=== PATIENT | male | born 1970 | race Caucasian/White ===

== ENCOUNTER 2019-07-07 01:01 | Inpatient (IN) | payer MEDICARE ==
--- NOTE | 2019-07-07 02:01 | PDOC ---
*Physical Exam - Vital Signs Last Vital Signs Temp Pulse Resp BP Pulse Ox 98.4 F 73 18 129/81 98 07/07/19 01:24 07/07/19 01:24 07/07/19 01:24 07/07/19 01:24 07/07/19 01:24 ED Treatment Course - LABORATORY CBC & Chemistry Diagram: 07/07/19 02:50 07/07/19 02:50 Medical Decision Making - Medical Decision Making 07/07/19 02:01 Patient seen by the advanced practice provider under my direct supervision. Ancillary testing reviewed as necessary. I agree with plan as outlined by the advanced practice provider. *DC/Admit/Observation/Transfer Diagnosis at time of Disposition: Right flank pain - Referrals Referrals: Otis Hanna [Primary Care Provider] - - Patient Instructions - Post Discharge Activity
--- NOTE | 2019-07-07 02:11 | PDOC ---
History of Present Illness - General Chief Complaint: Pain Stated Complaint: KIDNEY STONE Time Seen by Provider: 07/07/19 01:58 History Source: Patient - History of Present Illness Initial Comments: 07/07/19 03:21 48 year old male c/o right flank pain radiating to right groin. patient reports pain 8/10 with no relief with pain medication at home. patient was seen by urology 1 week ago reports that he has b/l kidney stones with large stone on the right. denies dysuria, oliguria, hematuria. patient reports that he was instructed by urology to return to the ER for evaluation. 07/07/19 05:01 urology: Dr. Rowland Past History - Past Medical History Allergies/Adverse Reactions: Allergies Allergy/AdvReac Type Severity Reaction Status Date / Time No Known Allergies Allergy Verified 07/07/19 01:24 Home Medications: Ambulatory Orders Diphenoxylate HCl/Atropine [Lomotil 2.5-0.025 mg Tablet] 1 each PO BID #20 tablet 05/19/14 Tamsulosin HCl [Flomax -] 0.4 mg PO DAILY@0830 #60 cap.er.24h 07/07/19 COPD: No Other medical history: Pt denies - Surgical History Appendectomy: Yes - Suicide/Smoking/Psychosocial Hx Smoking History: Never smoked Have you smoked in the past 12 months: No Information on smoking cessation initiated: No Hx Alcohol Use: No Drug/Substance Use Hx: No Review of Systems - Review of Systems Able to Perform ROS?: Yes Is the patient limited Nepalese proficient: No Constitutional: No: Symptoms Reported, See HPI, Chills, Diaphoresis, Fever, Loss of Appetite, Malaise, Night Sweats, Weakness, Weight Stable, Unintentional Wgt. Loss, Unexplained wgt Loss, Other ABD/GI: No: Symptoms Reported, See HPI, Abdominal Distended, Abd. Pain w/ defecation, Blood Streaked Bowels, Constipated, Diarrhea, Difficulty Swallowing , Nausea, Poor Appetite, Poor Fluid Intake, Rectal Bleeding, Vomiting, Indigestion, Abdominal cramping, Tarry Stools, Other : Yes: Flank Pain Integumentary: No: Symptoms Reported, See HPI, Bruising, Change in Color, Change in Hair/Nails, Dryness, Erythema, Flushing, Lesions, Lumps, Pallor, Pruritus, Rash, Sweating, Other *Physical Exam - Vital Signs Last Vital Signs Temp Pulse Resp BP Pulse Ox 98.4 F 73 18 129/81 98 07/07/19 01:24 07/07/19 01:24 07/07/19 01:24 07/07/19 01:24 07/07/19 01:24 - Physical Exam General Appearance: Yes: Appropriately Dressed Respiratory/Chest: positive: Lungs Clear, Normal Breath Sounds Gastrointestinal/Abdominal: positive: Normal Bowel Sounds, Tender (R CVAT and right lower quadrant) Musculoskeletal: positive: CVA Tenderness (R) Extremity: positive: Normal Capillary Refill, Normal Inspection, Normal Range of Motion Integumentary: positive: Normal Color, Dry, Warm Neurologic: positive: Fully Oriented, Alert, Normal Mood/Affect ED Treatment Course - LABORATORY CBC & Chemistry Diagram: 07/07/19 07:57 07/07/19 07:57 Progress Note - Progress Note Progress Note: A: right flank pain r/o obstructed stone P: Spiral CT IVF pain control spiral ct: Mild basilar atelectasis. Lack of oral contrast limits this exam. Lack of intravenous contrast limits this exam. Moderate right hydronephrosis with a proximal right ureteral 9 x 7 x 5 mm stone located approximately 16 cm upstream from the right ureterovesicular junction on coronal image 28 and axial image 69 and sagittal image 29. Noncontrast evaluation liver gallbladder pancreas spleen adrenal glands and left kidney appear unremarkable. Noncontrast evaluation stomach small bowel appear unremarkable. Appendix is surgically absent. Constipation. Diverticulosis without diverticulitis. Bladder appears unremarkable. Calcified granulomas in the prostate. Small umbilical hernia omental fat without incarceration. Moderate degenerative disc disease in the lower lumbar spine. Moderate degenerative joint disease of lower lumbar facets. Bone bridging across the sacroiliac joints. Mild degenerative joint disease of the hips with subchondral cystic degenerative change Medical Decision Making - Medical Decision Making 07/07/19 05:56 patient admitted to the hospital. signed out to the hospitalist team *DC/Admit/Observation/Transfer Diagnosis at time of Disposition: Right flank pain, Hydronephrosis, right, Renal colic on right side, Kidney stone on right side - Discharge Dispostion Decision to Admit order: Yes - Referrals - Patient Instructions - Post Discharge Activity
[2019-07-07] MEDS ORDERED: SODIUM CHLORIDE 1,000 ML IV STA (02:42)
[2019-07-07] MEDS ORDERED: KETOROLAC TROMETHAMINE 30 MG/1 ML VIAL IVPUSH ONE (02:42)
[2019-07-07] MEDS ORDERED: KETOROLAC TROMETHAMINE 30 MG/1 ML VIAL ONE (02:47)
[2019-07-07 03:09] LABS: BASO % 0.6 % (0-2.0); EOS % 2.9 % (0-4.5); HEMATOCRIT 43.9 % (35.4-49); HEMOGLOBIN 14.5 GM/dL (11.7-16.9); LYMPH % 46.2 % (8-40); MCH 30.3 pg (25.7-33.7); MCHC 33.2 g/dl (32.0-35.9); MEAN CELL VOLUME 91.3 fl (80-96); MEAN PLT VOLUME 8.1 fl (7.5-11.1); MONO % 7.3 % (3.8-10.2); PLATELET COUNT 329 K/MM3 (134-434); RBC 4.81 M/mm3 (4.00-5.60); RDW 14.6 % (11.9-15.9); WHITE BLOOD COUNT 5.7 K/mm3 (4.0-10.0)
[2019-07-07 03:14] LABS: PH,URINE 5.5 (5.0-8.0); URINE APPEARANCE CLEAR; URINE BILIRUBIN NEGATIVE (NEGATIVE); URINE COLOR YELLOW; URINE GLUCOSE (UA) NEGATIVE (NEGATIVE); URINE KETONE NEGATIVE (NEGATIVE); URINE LEUK ESTERASE NEGATIVE (NEGATIVE); URINE NITRITE NEGATIVE (NEGATIVE); URINE PROTEIN NEGATIVE (NEGATIVE); URINE UROBILINOGEN 0.2 mg/dL (0.2-1.0)
[2019-07-07 03:33] LABS: ALBUMIN 4.1 g/dl (3.4-5.0); BILIRUBIN,TOTAL 0.3 mg/dL (0.2-1); BLOOD UREA NITROGEN 18.7 mg/dL (7-18); CALCIUM 9.6 mg/dL (8.5-10.1); CREATININE 0.9 mg/dL (0.55-1.3); POTASSIUM 4.7 mmol/L (3.5-5.1); TOT PROT 7.6 g/dl (6.4-8.2)
[2019-07-07] MEDS: SODIUM CHLORIDE 1,000 ML IV SCH ×2 (05:32→13:11)
--- NOTE | 2019-07-07 05:48 | PN ---
Teaching Attending Note Name of Resident: Irma Malave ATTENDING PHYSICIAN STATEMENT I saw and evaluated the patient. I reviewed the resident's note and discussed the case with the resident. I agree with the resident's findings and plan as documented. SUBJECTIVE: Patient is a 48 year old man with PMH of appendectomy who presents with right flank pain radiating to right groin. Patient reports pain 8/10 in severity with no relief with pain medication at home. Patient was seen by urology 1 week ago reports that he has bilateral kidney stones with large stone on the right. Denies dysuria, oliguria, hematuria, nausea, vomiting, diarrhea, SOB, headache or chest pain. Denies alcohol abuse or use of illicit drugs. Patient reports that he was instructed by urology to return to the ER for evaluation. OBJECTIVE: Alert Vital Signs Period Temp Pulse Resp BP Sys/Esquivel Pulse Ox Last 24 Hr 97.7 F-98.4 F 56-73 18-20 114-129/74-81 98-98 HEENT: No Jaundice, eye redness or discharge, PERRLA, EOMI. Normocephalic, atraumatic. External ears are normal and hearing is grossly intact. No nasal discharge. Neck: Supple, nontender. No palpable adenopathy or thyromegaly. No JVD Chest: Good effort. Clear to auscultation and percussion. Heart: Regular. No S3, rub or murmur Abdomen: Not distended, soft, right CVA tenderness and no HSM. No rebound or guarding. Normal bowel sounds. Ext: Peripheral pulses intact. No leg edema. Skin: Warm and dry. No petechiae, rash or ecchymosis. Neuro: Alert. Oriented x3. CN 2-12 grossly intact. Sensation grossly intact in all four extremities and DTR are symmetric. Psych: Appropriate mood and affect. Good insight. Current Medications Generic Name Dose Route Start Last Admin Trade Name Freq PRN Reason Stop Dose Admin Sodium Chloride 1,000 mls @ 150 mls/hr 07/07/19 05:15 07/07/19 05:32 Normal Saline - IV 150 mls/hr ASDIR JORGE Administration Home Medications Medication Instructions Recorded Diphenoxylate HCl/Atropine 1 each PO BID #20 tablet 05/19/14 [Lomotil 2.5-0.025 Mg Tablet] Abnormal Lab Results 07/07/19 07/07/19 02:50 02:50 Lymphocytes % 46.2 H Anion Gap 7 L BUN 18.7 H AST 82 H ALT 83 H ASSESSMENT AND PLAN: 1. Renal colic/Right kidney stone - Spiral CT scan showed "moderate right hydronephrosis with a proximal right ureteral 9 x 7 x 5 mm stone located approximately 16 cm upstream from the right ureterovesicular junction. Moderate degenerative disc disease in the lower lumbar spine. Moderate degenerative joint disease of lower lumbar facets. Bone bridging across the sacroiliac joints. Mild degenerative joint disease of the hips with subchondral cystic degenerative change" Got toradol and IV NS in the ER. Will keep him NPO, continue IV NS, pain control with toradol, give flomax, strain his urine and consult Urology. Refer to Nephrology for outpatient workup to search for stone disease risk factor. No evidence of UTI. Trend LFTs. EKG and CXR pending. 2. DVT prophylaxis - SCD 3. Advance directives - Full code
[2019-07-07] MEDS ORDERED: ACETAMINOPHEN 1000 MG/100 ML VIAL (NON FORMULARY) IVPB PRN (05:57)
--- NOTE | 2019-07-07 06:19 | HP ---
CHIEF COMPLAINT: R flank pain PCP: Dr. Otis Hanna HISTORY OF PRESENT ILLNESS: Arun Rankin is a 48 year old male with no significant past medical history who was recently seen at Dr. Alejo's office last with a several day complain of R flank pain. The patient endorsed that he was having R sided flank pain that radiated to his groin that was worse when he was sitting up and driving. Associated with nausea and decreased appetite. Denied fever, chills, sob, cp, urinary urgency, hesitancy, dysuria, hematuria, difficulty initiating or stopping stream. Stated that at its worst the pain was an 8/10 and not alleviated with home pain medications. He had a CT scan done Saturday and after results were read by Dr. Alejo, the patient was advised to come to the ED. In the ED, the patient had a spiral CT performed which showed moderate R hydronephrosis with proximal R ureteral [id number] stone 16cm upstream from the R ureterovesicular junction. Additional CT findings showed diverticulosis w/o diverticulitis, calcified granulomas in the prostate, small umbilical hernia w/o incarceration, moderate degenerative disc disease, bone bridging across sacroiliac joint, mild degenerative joint disease. ER course was notable for: (1) CT finding as above (2) Given NS 1L, toradol, continue NS at 150cc/hr PAST MEDICAL HISTORY: no significant past medical history PAST SURGICAL HISTORY: appendectomy Social History: Smoking: denies Alcohol: socially Drugs: denies Family History: denies significant past family history Allergies No Known Allergies Allergy (Verified 07/07/19 01:24) HOME MEDICATIONS: Home Medications Medication Instructions Recorded Diphenoxylate HCl/Atropine 1 each PO BID #20 tablet 05/19/14 [Lomotil 2.5-0.025 Mg Tablet] REVIEW OF SYSTEMS CONSTITUTIONAL: loss of appetite Absent: fever, chills, diaphoresis, generalized weakness, malaise, weight change HEENT: Absent: rhinorrhea, nasal congestion, throat pain, throat swelling, difficulty swallowing, CARDIOVASCULAR: Absent: chest pain, syncope, palpitations, irregular heart rate, lightheadedness , peripheral edema RESPIRATORY: Absent: cough, shortness of breath, dyspnea with exertion, orthopnea, wheezing GASTROINTESTINAL: nausea Absent: abdominal pain, abdominal distension, vomiting, diarrhea, constipation, melena, GENITOURINARY: flank pain w/ groin radiation Absent: dysuria, frequency, urgency, hesitancy, hematuria, MUSCULOSKELETAL: back pain Absent: myalgia, arthralgia, joint swelling, neck pain SKIN: Absent: rash, itching, pallor HEMATOLOGIC/IMMUNOLOGIC: Absent: easy bleeding, easy bruising, lymphadenopathy, frequent infections ENDOCRINE: Absent: unexplained weight gain, unexplained weight loss, heat intolerance, cold intolerance NEUROLOGIC: Absent: headache, focal weakness or paresthesias, dizziness, unsteady gait, seizure, mental status changes, bladder or bowel incontinence PSYCHIATRIC: Absent: anxiety, depression, suicidal or homicidal ideation, hallucinations. PHYSICAL EXAMINATION Vital Signs - 24 hr 07/07/19 07/07/19 07/07/19 01:24 05:14 05:16 Temperature 98.4 F 97.7 F Pulse Rate 73 Pulse Rate [ 56 L Left Radial] Respiratory 18 20 Rate Blood Pressure 129/81 Blood Pressure 114/74 [Left Arm] O2 Sat by Pulse 98 98 98 Oximetry (%) GENERAL: Awake, alert, and fully oriented, in no acute distress. HEAD: Normal with no signs of trauma. EYES: Pupils equal, round and reactive to light, extraocular movements intact, sclera anicteric, conjunctiva clear. EARS, NOSE, THROAT: Ears normal, nares patent, oropharynx clear without exudates. Moist mucous membranes. NECK: Normal range of motion, supple without lymphadenopathy LUNGS: Breath sounds equal, clear to auscultation bilaterally. No wheezes, and no crackles. No accessory muscle use. HEART: Regular rate and rhythm, normal S1 and S2 without murmur, rub or gallop. ABDOMEN: Soft, nontender, not distended, normoactive bowel sounds, no guarding, no rebound, no masses. MUSCULOSKELETAL: Normal range of motion at all joints. No bony deformities or tenderness. Mild CVA tenderness. UPPER EXTREMITIES: 2+ pulses, warm, well-perfused. No cyanosis. No clubbing. No peripheral edema. LOWER EXTREMITIES: 2+ pulses, warm, well-perfused. No calf tenderness. No peripheral edema. NEUROLOGICAL: Cranial nerves II-XII intact. 5/5 muscle strength bilaterally upper and lower extremities. PSYCHIATRIC: Cooperative. Good eye contact. Appropriate mood and affect. SKIN: Warm, dry, normal turgor, no rashes or lesions noted, normal capillary refill. Laboratory Results - last 24 hr 07/07/19 07/07/19 07/07/19 02:50 02:50 03:00 WBC 5.7 RBC 4.81 Hgb 14.5 Hct 43.9 MCV 91.3 MCH 30.3 MCHC 33.2 RDW 14.6 Plt Count 329 MPV 8.1 Absolute Neuts (auto) 2.5 Neutrophils % 43.0 Lymphocytes % 46.2 H Monocytes % 7.3 Eosinophils % 2.9 Basophils % 0.6 Nucleated RBC % 0 Sodium 137 Potassium 4.7 Chloride 104 Carbon Dioxide 26 Anion Gap 7 L BUN 18.7 H Creatinine 0.9 Est GFR (CKD-EPI)AfAm 117.47 Est GFR (CKD-EPI)NonAf 101.35 Random Glucose 99 Calcium 9.6 Total Bilirubin 0.3 AST 82 H ALT 83 H Alkaline Phosphatase 111 Total Protein 7.6 Albumin 4.1 Urine Color Yellow Urine Appearance Clear Urine pH 5.5 Ur Specific [place] 1.020 Urine Protein Negative Urine Glucose (UA) Negative Urine Ketones Negative Urine Blood Negative Urine Nitrite Negative Urine Bilirubin Negative Urine Urobilinogen 0.2 Ur Leukocyte Esterase Negative ASSESSMENT/PLAN: Arun Rankin is a 48 year old male with no significant past medical history admitted for renal colic with a [id number] stone in the R ureter. R Renal Calculus with obstruction Elevated LFTs R Renal Calculus with obstruction - Dr. Alejo consulted, will see patient for possible urological intervention - NPO - continue IVF, NS at 150cc/hr - toradol 15mg q6h prn for pain - tylenol 1g IV q6 prn for pain - flomax 0.4mg daily - no evidence of UTI - strain urine for stones - will need close outpatient follow-up with nephrology for workup of renal stone risk factors, possible addition of potassium citrate to prevent future recurrences Elevated LFTs - possibly from dehydration secondary to poor oral intake - continue to trend - if continue to be elevated, will need liver workup FEN - NS 150cc/hr - continue to monitor electrolytes and replete as necessary - NPO pending surgical intervention Prophylaxis - SCDs pending surgical intervention Code - full code BRANDYN CAMPOS DO - PGY-1 Visit type - Emergency Visit Emergency Visit: Yes ED Registration Date: 07/07/19 Care time: The patient presented to the Emergency Department on the above date and was hospitalized for further evaluation of their emergent condition. - New Patient This patient is new to me today: Yes Date on this admission: 07/07/19 - Critical Care Critical Care patient: No
[2019-07-07 08:15] LABS: EOS % 2.5 % (0-4.5); HEMATOCRIT 39.8 % (35.4-49); HEMOGLOBIN 13.3 GM/dL (11.7-16.9); LYMPH % 45.4 % (8-40); MCH 30.3 pg (25.7-33.7); MCHC 33.4 g/dl (32.0-35.9); MEAN CELL VOLUME 90.6 fl (80-96); MEAN PLT VOLUME 7.4 fl (7.5-11.1); MONO % 7.2 % (3.8-10.2); NEUT % 43.9 % (42.8-82.8); PLATELET COUNT 287 K/MM3 (134-434); RBC 4.39 M/mm3 (4.00-5.60); RDW 14.3 % (11.9-15.9); WHITE BLOOD COUNT 5.2 K/mm3 (4.0-10.0)
[2019-07-07 08:28] LABS: INR 0.97 (0.83-1.09); PROTHROMBIN TIME (PATIENT) 11.5 SEC (9.7-13.0)
[2019-07-07 08:31] LABS: ACTIVATED PTT 32.6 SECONDS (25.2-36.5)
[2019-07-07 08:37] LABS: BLOOD UREA NITROGEN 15.9 mg/dL (7-18); CALCIUM 8.4 mg/dL (8.5-10.1); CREATININE 0.8 mg/dL (0.55-1.3); PHOSPHOROUS 2.9 mg/dL (2.5-4.9); POTASSIUM 4.1 mmol/L (3.5-5.1)
[2019-07-07] MEDS ORDERED: TAMSULOSIN HCL 0.4 MG CAP ONE (09:02)
[2019-07-07] MEDS: TAMSULOSIN HCL 0.4 MG CAP PO SCH (09:17)
[2019-07-07] MEDS ORDERED: KETOROLAC TROMETHAMINE 15 MG/ML VIAL ONE (09:37)
[2019-07-07] MEDS: KETOROLAC TROMETHAMINE 15 MG/ML VIAL IVPUSH PRN ×2 (09:44→20:22)
--- NOTE | 2019-07-07 11:33 | PN ---
Progress Note, Physician Chief Complaint: having intermittent right sided flank reyes History of Present Illness: Patient is a 48 year old male with no significant past medical history who was recently seen at Dr. Rowland's for several day complain of R flank pain. The patient endorsed that he was having R sided flank pain that radiated to his groin that was worse when he was sitting up. Associated with nausea and decreased appetite. Recent He had a CT scan done Saturday which showed moderate R hydronephrosis with proximal R ureteral [id number] stone 16cm upstream from the R ureterovesicular junction. - Current Medication List Current Medications: Active Medications Acetaminophen (Ofirmev Injection -) 1,000 mg IVPB Q6H PRN PRN Reason: FEVER Sodium Chloride (Normal Saline -) 1,000 mls @ 150 mls/hr IV ASDIR [facility] Last Admin: 07/07/19 05:32 Dose: 150 mls/hr Ketorolac Tromethamine (Toradol Injection -) 15 mg IVPUSH Q6H PRN PRN Reason: PAIN LEVEL 6-10 Stop: 07/12/19 05:56 Last Admin: 07/07/19 09:44 Dose: 15 mg Tamsulosin HCl (Flomax -) 0.4 mg PO DAILY@0830 [facility] Last Admin: 07/07/19 09:17 Dose: 0.4 mg - Objective Vital Signs: Vital Signs Temperature 98.3 F 07/07/19 11:05 Pulse Rate 65 07/07/19 11:05 Respiratory Rate 18 07/07/19 11:05 Blood Pressure 124/73 07/07/19 11:05 O2 Sat by Pulse Oximetry (%) 95 07/07/19 09:16 Constitutional: Yes: Well Nourished, No Distress Eyes: Yes: Conjunctiva Clear HENT: Yes: Atraumatic Neck: Yes: Supple Cardiovascular: Yes: Regular Rate and Rhythm Respiratory: Yes: Regular Gastrointestinal: Yes: Normal Bowel Sounds ...Rectal Exam: Yes: Deferred Genitourinary: Yes: CVA Tenderness - Right Musculoskeletal: Yes: WNL Extremities: Yes: WNL Edema: No Labs: CBC, BMP 07/07/19 07:57 07/07/19 07:57 INR, PTT INR 0.97 (0.83-1.09) 07/07/19 07:57 Problem List - Problems (1) Hydronephrosis, right Code(s): N13.30 - UNSPECIFIED HYDRONEPHROSIS (2) Kidney stone on right side Code(s): N20.0 - CALCULUS OF KIDNEY (3) Renal colic on right side Code(s): N23 - UNSPECIFIED RENAL COLIC (4) Right flank pain Code(s): R10.9 - UNSPECIFIED ABDOMINAL PAIN Impression/Plan Impression/Plan: Right colic pain. Dr. Rowland consulted. patient for a possible urological intervention Maintain NPO continue IVF, NS at 150cc/hr pain management with toradol on flomax 0.4mg dialy Elevated LFTs possibly from dehydration secondary to poor oral intake. repeat in a.m. may need liver ultrasound if remains elevated. fen tolerating po monitor labs low salt diet once urologic procedures complete full code Visit type - Emergency Visit Emergency Visit: Yes ED Registration Date: 07/07/19 Care time: The patient presented to the Emergency Department on the above date and was hospitalized for further evaluation of their emergent condition. - New Patient This patient is new to me today: Yes Date on this admission: 07/07/19 - Critical Care Critical Care patient: No - Discharge Referral Referred to [facility] Med P.C.: No
[2019-07-07 11:38] VITALS: BMI 29.5
--- NOTE | 2019-07-07 12:41 | EKG ---
Test Reason : Blood Pressure : / mmHG Vent. Rate : 063 BPM Atrial Rate : 063 BPM P-R Int : 154 ms QRS Dur : 092 ms QT Int : 402 ms P-R-T Axes : 060 042 061 degrees QTc Int : 411 ms NORMAL SINUS RHYTHM POSSIBLE INFERIOR INFARCT , AGE UNDETERMINED ABNORMAL ECG NO PREVIOUS ECGS AVAILABLE Confirmed by Alexander Harmon MD ([id number]) on 07/07/2019 12:41:11 PM Referred By: Confirmed By:Alexander Harmon MD
[2019-07-07] MEDS ORDERED: PROMETHAZINE HCL 25 MG/1 ML VIAL IVPUSH PRN (15:03)
[2019-07-07] MEDS ORDERED: ONDANSETRON 4 MG/2 ML VIAL IVPUSH PRN (15:03)
[2019-07-07] MEDS ORDERED: MIDAZOLAM HCL 2 MG/2 ML SINGLE DOSE VIAL ONE (15:05)
[2019-07-07] MEDS ORDERED: PROPOFOL 20 ML ONE ×2 (15:05→16:50)
[2019-07-07] MEDS ORDERED: LACTATED RINGERS SOLUTION 1,000 ML IV SCH (15:15)
[2019-07-07] MEDS ORDERED: SODIUM CHLORIDE 0.9% P/F 10 ML VIAL IJ ONE (16:32)
[2019-07-07] MEDS ORDERED: ceFAZolin SODIUM 1 GM VIAL ONE (16:32)
[2019-07-07] MEDS ORDERED: ceFAZolin SODIUM 1 GM VIAL IVPB ONE (16:32)
[2019-07-07] MEDS ORDERED: DEXAMETHASONE SOD PHOSPHATE 4 MG/1 ML VIAL ONE (16:34)
--- NOTE | 2019-07-07 17:08 | OP ---
Operative Note - Note: Operative Date: 07/07/19 Pre-Operative Diagnosis: Right ureteral calculus Operation: Right Ureteroscopy laser lithotripsy stent placement Findings: 9 mm prox ureteral stone Post-Operative Diagnosis: Same as Pre-op Surgeon: Tim Rowland MD. Anesthesiologist/GED TEACHER: Kim Knight Anesthesia: MAC Specimens Removed: none Estimated Blood Loss (mls): 2 Drains & Tubes with Location: 6 fr 22 cm DJ stent
[2019-07-07] MEDS: ELECTROLYTE-148 SOLN 1,000 ML IV SCH (18:12)
--- NOTE | 2019-07-07 23:42 | OP ---
DATE OF OPERATION: 07/07/2019 PREOPERATIVE DIAGNOSIS: Right renal calculus. POSTOPERATIVE DIAGNOSIS: Right renal calculus. PROCEDURE: Right ureteroscopy. Laser lithotripsy. Stent placement. HISTORY: This is a pleasant 48-year-old gentleman who presents to the ER with obstructive uropathy from a 9-mm proximal ureteral stone. After discussing treatment options, the patient agreed to undergo the above stated procedure. Risks and benefits of treatment and alternatives discussed in detail. All questions answered. BRIEF OPERATIVE NOTE: The patient is brought in the operating room, placed in supine position. When general anesthesia was administered, the patient was transferred to dorsal lithotomy position. Prepped and draped in standard sterile fashion. Intravenous antibiotics were given. At this time a 23 [place] cystoscope sheath was placed into the bladder under direct vision bladder was otherwise unremarkable. The right ureteral orifice was identified and a 0.038 guidewire was placed up into the renal pelvis. This was confirmed fluoroscopically. Over the wire was passed a 7.5 [place] flexible ureteroscope. The wire was then removed. Through the working channel, a 200 micron fiber was placed and the stone visualized, and using setting 1 then 0.8 joules and 10 megahertz the stone was fragmented into multiple small fragments. There was no evidence of larger fragments at the time. There was no evidence of active bleeding. At this time the scope was removed after replacing the wire. A 6 [place] 20-cm Double J stent was placed over the guidewire. This was confirmed fluoroscopically. Bladder was drained, and patient was brought to recovery room in stable and satisfactory condition. Benjamin [id number]
[2019-07-08] MEDS: KETOROLAC TROMETHAMINE 15 MG/ML VIAL IVPUSH PRN (02:36)
[2019-07-08] MEDS: ELECTROLYTE-148 SOLN 1,000 ML IV SCH (06:38)
[2019-07-08] MEDS: TAMSULOSIN HCL 0.4 MG CAP PO SCH (08:46)
[2019-07-08 10:00] LABS: BASO % 0.1 % (0-2.0); HEMATOCRIT 39.4 % (35.4-49); HEMOGLOBIN 13.2 GM/dL (11.7-16.9); LYMPH % 12.6 % (8-40); MCH 30.6 pg (25.7-33.7); MCHC 33.6 g/dl (32.0-35.9); MEAN CELL VOLUME 90.9 fl (80-96); MEAN PLT VOLUME 7.6 fl (7.5-11.1); MONO % 2.3 % (3.8-10.2); PLATELET COUNT 292 K/MM3 (134-434); RBC 4.33 M/mm3 (4.00-5.60); RDW 14.2 % (11.9-15.9); WHITE BLOOD COUNT 10.6 K/mm3 (4.0-10.0)
--- NOTE | 2019-07-08 10:40 | PN ---
Progress Note (short form) - Note Progress Note: Post op day#1.S/P Cystoscopy with R ureteroscopy,laser lithotripsy and R stent placement under GA uneventful.Patient stable.No any anesthesia related problem.Patient DC from the anesthesia care.
[2019-07-08 10:46] VITALS: BP 100/53; PULSE 66; TEMP 98.8
[2019-07-08 10:52] LABS: ALBUMIN 3.4 g/dl (3.4-5.0); BILIRUBIN,TOTAL 0.5 mg/dL (0.2-1); BLOOD UREA NITROGEN 15.2 mg/dL (7-18); CALCIUM 8.5 mg/dL (8.5-10.1); CREATININE 0.9 mg/dL (0.55-1.3); POTASSIUM 3.8 mmol/L (3.5-5.1); TOT PROT 6.4 g/dl (6.4-8.2)
--- NOTE | 2019-07-08 11:02 | DS ---
Physical Exam: SUBJECTIVE: Patient seen and examined at the bedside. denies pain, urinating well. no pain with urination. has follow up to see Dr. Rowland next week OBJECTIVE: discharge home Vital Signs Period Temp Pulse Resp BP Sys/Esquivel Pulse Ox Last 24 Hr 98 F-98.8 F 55-69 14-18 100-133/53-85 96-100 PHYSICAL EXAM GENERAL: The patient is awake, alert, and fully oriented, in no acute distress. HEAD: Normal with no signs of trauma. EYES: PERRL, extraocular movements intact, sclera anicteric, conjunctiva clear. ENT: Ears normal, nares patent, oropharynx clear without exudates, moist mucous membranes. NECK: Trachea midline, full range of motion, supple. LUNGS: Breath sounds equal, clear to auscultation bilaterally, no wheezes, no crackles, no accessory muscle use. HEART: Regular rate and rhythm, S1, S2 without murmur, rub or gallop. ABDOMEN: Soft, nontender, nondistended, normoactive bowel sounds, no guarding, no rebound, no hepatosplenomegaly, no masses. EXTREMITIES: 2+ pulses, warm, well-perfused, no edema. NEUROLOGICAL: Cranial nerves II through XII grossly intact. Normal speech, gait not observed. PSYCH: Normal mood, normal affect. SKIN: Warm, dry, normal turgor, no rashes or lesions noted. LABS Laboratory Results - last 24 hr 07/08/19 07/08/19 09:30 09:30 WBC 10.6 H RBC 4.33 Hgb 13.2 Hct 39.4 MCV 90.9 MCH 30.6 MCHC 33.6 RDW 14.2 Plt Count 292 MPV 7.6 Absolute Neuts (auto) 9.0 H Neutrophils % 85.0 H D Lymphocytes % 12.6 D Monocytes % 2.3 L Eosinophils % 0.0 D Basophils % 0.1 Nucleated RBC % 0 Sodium 141 Potassium 3.8 Chloride 104 Carbon Dioxide 26 Anion Gap 11 BUN 15.2 Creatinine 0.9 Est GFR (CKD-EPI)AfAm 117.47 Est GFR (CKD-EPI)NonAf 101.35 Random Glucose 192 H Calcium 8.5 Total Bilirubin 0.5 AST 21 ALT 51 Alkaline Phosphatase 77 Total Protein 6.4 Albumin 3.4 HOSPITAL COURSE: Date of Admission:07/07/19 Date of Discharge: 07/08/19 Minutes to complete discharge: 60 Discharge Summary Reason For Visit: RENAL COLIC ON RIGHT SIDE,HYDRONEPHROSIS OF RIGHT Current Active Problems Hydronephrosis, right (Acute) Kidney stone on right side (Acute) Renal colic on right side (Acute) Right flank pain (Acute) Patient is s/p Right Ureteroscopy laser lithotripsy stent placement/9 mm prox ureteral stone for discharge home with urology follow up urinating well, no pain with urination, samantha clear urine in urinal labs stable Condition: Good - Instructions Diet, Activity, Other Instructions: Please see Dr. Rowland for a follow up appointment next week. Referrals: Otis Hanna [Primary Care Provider] - Disposition: HOME - Home Medications Comprehensive Discharge Medication List: Ambulatory Orders Diphenoxylate HCl/Atropine [Lomotil 2.5-0.025 mg Tablet] 1 each PO BID #20 tablet 05/19/14 Tamsulosin HCl [Flomax -] 0.4 mg PO DAILY@0830 #60 cap.er.24h 07/07/19 Problem List - Problems (1) Hydronephrosis, right Code(s): N13.30 - UNSPECIFIED HYDRONEPHROSIS (2) Kidney stone on right side Code(s): N20.0 - CALCULUS OF KIDNEY (3) Renal colic on right side Code(s): N23 - UNSPECIFIED RENAL COLIC (4) Right flank pain Code(s): R10.9 - UNSPECIFIED ABDOMINAL PAIN This patient is new to me today: Yes Date on this admission: 07/08/19 Emergency Visit: No Critical Care patient: No - Discharge Referral Referred to [facility] No
== END 2019-07-08 12:16 | disposition home or self-care (01) | DRG 446 ==
LOC: JER 01:01 → JERBED 05:11 → J5S 10:43
PROVIDERS: ADMIT Internal Medicine; ATTEND Nurse Practitioner Family
PROC: 0TC68ZZ Extirpation of Matter from Right Ureter, Via Natural or Artificial Opening Endoscopic (ICD-10-PCS; principal; 2019-07-07 17:00)
PROC: 0T768DZ Dilation of Right Ureter with Intraluminal Device, Via Natural or Artificial Opening Endoscopic (ICD-10-PCS; 2019-07-07 17:00)
DX: N13.2 Hydronephrosis with renal and ureteral calculous obstruction (principal); M51.36 Other intervertebral disc degeneration, lumbar region; M16.10 Unilateral primary osteoarthritis, unspecified hip; E86.0 Dehydration; J98.11 Atelectasis
CPT/HCPCS: 36415; 74176-TC; 76000-TC-FY; 80048; 80053; 81003; 83735; 84100; 85025; 85610; 85730; 86850; 86900; 86901; 93005; 93010; 94760; 99283-25; J7030